=== PATIENT | male | born 1960 | race Caucasian/White ===

== ENCOUNTER → 2020-01-27 | Outpatient (CLI) | payer BC, OTHER ==
[~2020-01-27] VITALS: Ht 180.3 cm; Wt 74.8 kg
[~2020-01-27] MED LIST: NOHOMEMEDICATIONS
--- NOTE | ~2020-01-27 | HPC ---
[facility] [place] [address] PAIN MANAGEMENT CONSULTATION Name: BERTA OLIVEIRA Room #: REG VALERIE Horton.#: [id number] Admission: 01/27/20 Attend Phys: Jeremias Go MD Discharge: Date of : 64 Report #: [id number] THIS REPORT FOR: cc: [facility] - family physician/PCP [facility] - No family physician/PCP Jeremias Go MD ~ CC: [facility] physician/PCP Jeremias Go DATE OF SERVICE: 01/27/2020 CHIEF COMPLAINT: Severe low back pain with radiation into the right hip and leg. 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 He has been having terrible pain in his back for the last 2-3 months. He describes it on intensity score is a 6/10, 3-4 on an average daily basis, runs down his right leg and hip, worse with lifting, walking. Obtain some relief with the supine position. He has also seen a chiropractor, which gives him some short-term relief. His job is important, he is a dry jay, and this causes him to work above his head. He is doing less of that as he has aging out of the job. He also has significant restrictions in his wrist motion. Hyperextension of the wrist is necessary to work above his head. He complains of pain there as well. Pain is intermittent at times, rhythmic, shooting, stabbing and sharp. MEDICATIONS: None. ALLERGIES: None. PAST MEDICAL HISTORY: Unremarkable. SOCIAL HISTORY: Smokes a pack and half a day and has done so for 40 years. Denies alcohol at all. Completed an opioid risk score, it is 7. He had some personal history of use of alcohol as a teenager, but none since. He is at moderate risk for using stronger pain medication. Impact pain score is 53/70. PHYSICAL EXAMINATION: GENERAL: Really pleasant, soft spoken, 59-year-old. He moves independently from sitting to standing, but he is really stiff and he cannot straighten up when he first gets up. As he walks, he has antalgic features to his gait. [facility] [address] [place] [address] PAIN MANAGEMENT CONSULTATION Name: BERTA OLIVEIRA Room #: REG [facility]#: [id number] Admission: 01/27/20 Attend Phys: Jeremias Go MD Discharge: Date of : 64 Report #: [id number] CHEST: Clear. CARDIAC: Rhythm is regular. ABDOMEN: Soft. Spine is tender with bilateral paravertebral muscle tenderness and spasm along the lumbosacral segment. Some pain radiates down into the sacroiliac joints bilaterally as well. Straight leg raising bilaterally reproduces pain of radicular nature. He has good rotations of the hips without any evidence of hip arthropathy. I did examine both wrists and both wrists are very tight and restricted in motion, both flexion, extension, and lateral movements. There is a synovial cyst as well noted in the lateral aspect of the right wrist around the radial carpal joint. IMPRESSION: 1. Low back pain with radiculopathy. 2. 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 RECOMMENDATIONS: 1. We will do some plain film x-rays of his wrist just for assessment. 2. Lumbar epidural steroid injection under fluoroscopic guidance today for pain relief. If he is not responding or pain worsens, I would recommend an MRI. PROCEDURE: Lumbar epidural steroid injection of L4-L5 under fluoroscopic guidance. He was taken to fluoroscopic suite, placed prone, skin prepped with ChloraPrep. Skin anesthetized over the L4-L5 interspace. A 20-gauge Tuohy epidural needle advanced in the epidural space to the right midline using loss of resistance. There was no blood and no CSF aspirated. A 1 mL of Omnipaque injected. Good spread of dye observed into the epidural space, followed by 3 mL of 0.5% lidocaine mixed with 80 mg of triamcinolone. He tolerated the procedure well and was discharged with a pain score of 0. X-rays will be performed with diagnostic imaging. By: [id number] Jeremias Go MD /nt
[2020-01-27 10:53] VITALS: BP 151/94
--- NOTE | 2020-01-27 11:30 | NUR ---
Pain Clinic Assessment: 1. History of Osteoarthritis: DENIES History of Rheumatoid Arthritis: DENIES 2. Height: 5 ft. 11 in. 180.3 cm. Weight: 165.0 lb. oz. 74.844 kg. Patient's BMI: 23.0 3. Vital Signs: BP: 151/94 Pulse: 78 Resp: 14 Temp: 02 Sat: 99 ECG Mon: 4. Pain Intensity: 3-4 5. Fall Risk: Dizziness: N Needs help standing or walking: N Fallen in the last 3 months: Y Fall risk comments: 6. Patient on Blood Thinner: None 7. History of Hypertension: N 8. Opioid Therapy greater than 6 weeks: N Opiate Contract Signed: 9. Risk Assessment Tool Provided: MOD RISK-7 10. Functional Assessment Tool: 53/70 11. Recreational Drug Use: Drug Type: Tobacco Use: Current Every Day Smoker Tobacco Type: Cigarettes Amount or Packs/day: 1 1/2 PPD How Many Years: 40 Alcohol Use: No Frequency: Quant:
== END | disposition home or self-care (01) ==
LOC: PAIN 06:58
DX: M54.16 Radiculopathy, lumbar region (principal); G89.29 Other chronic pain; M19.031 Primary osteoarthritis, right wrist; M19.032 Primary osteoarthritis, left wrist; F17.210 Nicotine dependence, cigarettes, uncomplicated; Z98.890 Other specified postprocedural states; Z79.899 Other long term (current) drug therapy

== ENCOUNTER → 2020-05-25 | Outpatient (CLI) | payer BC, OTHER ==
[~2020-05-25] VITALS: Ht 180.3 cm; Wt 75.0 kg
[~2020-05-25] MED LIST changes: +ACETAMINOPHEN325 M1 PO; +ALEVE220 M1 PO
[2020-05-25 09:58] VITALS: BP 150/86
--- NOTE | 2020-05-25 10:05 | NUR ---
Pain Clinic Assessment: 1. History of Osteoarthritis: DENIES History of Rheumatoid Arthritis: DENIES 2. Height: 5 ft. 11 in. 180.3 cm. Weight: 165.4 lb. oz. 75.025 kg. Patient's BMI: 23.1 3. Vital Signs: BP: 150/86 Pulse: 88 Resp: 18 Temp: 02 Sat: 98 ECG Mon: 4. Pain Intensity: 3-4 5. Fall Risk: Dizziness: N Needs help standing or walking: N Fallen in the last 3 months: N Fall risk comments: 6. Patient on Blood Thinner: None 7. History of Hypertension: N 8. Opioid Therapy greater than 6 weeks: N Opiate Contract Signed: 9. Risk Assessment Tool Provided: MOD RISK-7 10. Functional Assessment Tool: 11. Recreational Drug Use: Unknown Drug Type: Tobacco Use: Current Every Day Smoker Tobacco Type: Cigarettes Amount or Packs/day: 1 1/2 PPD How Many Years: 40 Alcohol Use: No Frequency: Quant:
--- NOTE | 2020-06-15 09:56 | HPC ---
[facility] [address] [place] [address] PAIN MANAGEMENT CONSULTATION Name: BERTA OLIVEIRA Room #: REG VALERIE Horton.#: [id number] Admission: 05/25/20 Attend Phys: Jeremias Go MD Discharge: Date of : 64 Report #: [id number] THIS REPORT FOR: cc: [facility] - family physician/PCP [facility] - family physician/PCP Jeremias Go MD ~ CC: [facility] physician/PCP Pain Clinic Jeremias Go DATE OF SERVICE: 05/25/2020 Followup visit for lumbar radiculopathy. 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 Pain radiates through the right hip and thigh almost to the knee. Rarely does it go further. He has had sharp, stabbing symptoms, shooting, intermittent numbness. It is worse with prolonged walking, stairs, climbing a ladder. He also noticed when he has right rotational movements of his lumbar spine that the pain exacerbates. He has some wrist pain also, which is job related, we discussed at the last visit. For 3 weeks, he felt really quite good after his first epidural 70% improvement and it has come back fairly quickly here recently and pain intensity today is similar to before. MEDICATIONS: Naproxen sodium and Extra Strength Tylenol. ALLERGIES: None. PHYSICAL EXAMINATION: GENERAL: Very fit-appearing 59-year-old. VITAL SIGNS: His blood pressure is 150/86, heart rate 88, respirations 18, O2 sat is 98 on room air. His BMI is 23. MUSCULOSKELETAL: Moves independently from sitting to standing position, ambulates with mild antalgic features. He has limited range of motion to the right, which reproduces pain shooting down his right leg. Lateral tilt also. Straight leg raising is positive on the right consistent with radiculopathy. MRI none. RECOMMENDATIONS: We discussed an MRI. We are going to see how he does with his next injection. I am fairly convinced that he has an L4-L5 or an L5-S1 disk just based upon statistics, his line of work and his distribution of pain. If he does not get a sustained response with this injection, I will recommend that we proceed with an MRI of the lumbar spine without contrast and we discussed how [address] [address] PAIN MANAGEMENT CONSULTATION Name: BERTA OLIVEIRA Room #: REG VALERIE [place]reilly#: [id number] Admission: 05/25/20 Attend Phys: Jeremias Go MD Discharge: Date of : 64 Report #: [id number] it might go about getting that economically. PROCEDURE: Lumbar epidural injection L4-L5 under fluoroscopic guidance. DESCRIPTION OF PROCEDURE: After informed consent, he was taken to the fluoroscopic suite, placed prone, skin prepped with ChloraPrep. Skin anesthetized to the right of L4-L5 using loss of resistance. A 20-gauge Tuohy epidural needle was advanced in the epidural space. There was no blood or CSF aspirated. A 1 mL of Omnipaque injected with an excellent epidurogram to the right followed by 3 mL of 0.5% lidocaine mixed with 80 mg of triamcinolone. He tolerated the procedure well and was observed for 45 minutes and discharged without complication. Follow up as needed. <ELECTRONICALLY SIGNED> By: Jeremias Go MD 06/15/20 [id number] Jeremias Go MD /nt
== END | disposition home or self-care (01) ==
LOC: PAIN 06:57
PROVIDERS: ATTEND Anesthesiology Pain Medicine
DX: M54.16 Radiculopathy, lumbar region (principal); G89.29 Other chronic pain; Z98.890 Other specified postprocedural states

== ENCOUNTER → 2021-12-27 | Outpatient (CLI) | payer OTHER | LOC: CAT 08:16 | PROVIDERS: ATTEND Family Medicine | DX: Z13.6 Encounter for screening for cardiovascular disorders (principal); I25.10 Atherosclerotic heart disease of native coronary artery without angina pectoris; E78.00 Pure hypercholesterolemia, unspecified ==

== ENCOUNTER → 2022-01-10 | Outpatient (CLI) | payer BC, OTHER | LOC: SJCVCIMAG 07:57 | PROVIDERS: ATTEND Internal Medicine Cardiovascular Disease | DX: R07.9 Chest pain, unspecified (principal); I10 Essential (primary) hypertension; E78.5 Hyperlipidemia, unspecified; R93.1 Abnormal findings on diagnostic imaging of heart and coronary circulation; Z87.891 Personal history of nicotine dependence ==